=== PATIENT | female | born 1940 | race Caucasian/White ===

== ENCOUNTER 2016-12-03 11:42 | Inpatient (IN) | payer MEDICARE, BC ==
[~2016-12-03] VITALS: Ht 154.9 cm; Wt 68.7 kg
[~2016-12-03 11:42] MED LIST changes: -ALPR.25 PO; -ALPR.5 PO; -AMLO5 PO; -DOCU1CAP39 PO; -GABA100C4 PO; -HYDR-3516 PO; -LISI-519 PO
[2016-12-03] MEDS ORDERED: AMLO5 PO (13:21)
[2016-12-03] MEDS ORDERED: ALPR.5 PO (13:22)
[2016-12-08] MEDS ORDERED: ceFAZolin 2 GM PREMIX 50 ML ONE (10:51)
[2016-12-08 10:59] VITALS: BP 127/77; PULSE 78; RESP 20; TEMP 98.5; O2SAT 99
[2016-12-08] MEDS ORDERED: ceFAZolin 2 GM PREMIX 50 ML IV SCH (12:15)
[2016-12-08] MEDS ORDERED: POVIDONE IODINE 5% (ANTISEPSIS KIT) 4 APPLICATIONS EACH NARE PRN (12:15)
[2016-12-08] MEDS ORDERED: METOPROLOL TARTRATE 25 MG TAB PO PRN (12:15)
[2016-12-08] MEDS ORDERED: LACTATED RINGER'S 1000 ML INJ 1,000 ML IV SCH (12:15)
[2016-12-08] MEDS ORDERED: INSULIN HUMAN REGULAR 1,000 UNITS/10 ML VIAL SQ PRN (12:15)
[2016-12-08] MEDS ORDERED: CHLORHEXIDINE GLUCONATE 2 % 1 PACK (2 CLOTHS) TOPICAL PRN (12:15)
[2016-12-08] MEDS ORDERED: LACTATED RINGER'S 1000 ML IV PRN (12:15)
[2016-12-08] MEDS ORDERED: SODIUM CHLORID 0.9% 500 ML IV PRN (12:15)
[2016-12-08] MEDS ORDERED: PROPOFOL 200 MG/20 ML AMP IV ONE (13:50)
[2016-12-08] MEDS ORDERED: ePHEDrine/NS 25 MG/5 ML SYR IV ONE (13:50)
[2016-12-08] MEDS ORDERED: ONDANSETRON HCL 4 MG/2 ML VIAL IV PUSH ONE (13:51)
[2016-12-08] MEDS ORDERED: PHENYLEPH/NS 1000 MCG/10 ML SYR IV ONE (13:51)
[2016-12-08] MEDS ORDERED: GENTAMICIN SULFATE 80 MG/2 ML VIAL ONE (14:43)
[2016-12-08] MEDS ORDERED: GELFOAM SIZE 100 ONE (14:43)
[2016-12-08] MEDS ORDERED: THROMBIN (TOPICAL) 5,000 UNIT VIAL ONE (14:43)
[2016-12-08] MEDS ORDERED: LIDOCAINE 1%/EPINEPHrine 1:100,000 SOLN 20 ML VIAL ONE (14:43)
[2016-12-08] MEDS ORDERED: MIDAZOLAM HCL 5 MG/5 ML VIAL ONE (15:22)
[2016-12-08] MEDS ORDERED: ACETAMINOPHEN 1000 MG/100 ML VIAL IV ONE ×2 (15:22→19:50)
[2016-12-08] MEDS ORDERED: FAMOTIDINE 20 MG/2 ML VIAL ONE (15:22)
[2016-12-08] MEDS ORDERED: DEXAMETHASONE SOD PHOS 4 MG/ML VIAL ONE (15:23)
[2016-12-08] MEDS ORDERED: HYDROmorphone HCL PF 2 MG/ML VIAL ONE (15:23)
[2016-12-08] MEDS ORDERED: ceFAZolin INJ 1,000 MG VIAL IV ONE (17:20)
[2016-12-08] MEDS ORDERED: fentaNYL CITRATE 250 MCG/5 ML AMP ONE ×2 (17:30→19:50)
[2016-12-08] MEDS ORDERED: DO NOT ADM ANY ANTICOAGULANT DRUGS PRN (21:42)
--- NOTE | 2016-12-08 22:04 | RADRPT ---
EXAM DATE/TIME: 12/08/2016 16:41 [facility] COMPARISON: No previous studies available for comparison. INDICATIONS : C4-C7 Anterior cervical disc fusion with a corpectomy at C5. MEDICAL HISTORY : Hypertension. Gastroesophageal reflux disease. SURGICAL HISTORY : None. ENCOUNTER: Initial ACUITY: 1 day PAIN SCORE: Non-responsive. LOCATION: Cervical spine. CONCLUSION: Fluoroscopic images with anterior fusion C4-C7. Corpectomy device at C5 with drain seen posteriorly. Rommel Perea MD on December 08, 2016 at 22:02 Board Certified Radiologist. This report was verified electronically.
[2016-12-08] MEDS ORDERED: NALOXONE HCL 0.4 MG/ML AMP IV PRN (22:15)
[2016-12-08] MEDS ORDERED: MORPHINE SULFATE 4 MG/ML INJ IV PRN (22:15)
[2016-12-08] MEDS ORDERED: ONDANSETRON HCL 4 MG/2 ML VIAL IV PRN (22:15)
[2016-12-08] MEDS ORDERED: ENALAPRILAT 1.25 MG/ML VIAL IV PUSH PRN (22:15)
[2016-12-08] MEDS ORDERED: LABETALOL HCL 100 MG/20 ML VIAL IV PRN (22:15)
[2016-12-08] MEDS ORDERED: SODIUM CHLORIDE 0.9% FLUSH 5 ML FLUSH IVF PRN (22:15)
[2016-12-08] MEDS ORDERED: oxyCODONE/ACETAMINOPHEN 10 MG/325 MG TAB PO PRN (22:15)
[2016-12-08] MEDS ORDERED: ALPRAZolam 0.5 MG TAB PO PRN (22:15)
[2016-12-08] MEDS ORDERED: HYDROmorphone HCL PF 1 MG/ML VIAL IV PRN (22:15)
[2016-12-08 22:37] LABS: AUTOMATED NEUTROPHIL # 15.8 TH/MM3 (1.8-7.7); BASOPHIL % 0.1 % (0.0-2.0); HEMATOCRIT 32.5 % (35.0-46.0); HEMO FLAGS DIFF FINAL; LYMPH % 2.2 % (9.0-44.0); LYMPHOCYTE # 0.4 TH/MM3 (1.0-4.8); MEAN CELL VOLUME 89.5 FL (80.0-100.0); MEAN CORPUSCULAR HEMOGLOBIN 29.3 PG (27.0-34.0); MEAN CORPUSCULAR HGB CONC 32.7 % (32.0-36.0); MONO % 6.9 % (0.0-8.0); NEUT % 90.8 % (16.0-70.0); PLATELET COUNT 776 TH/MM3 (150-450); RED BLOOD COUNT 3.63 MIL/MM3 (4.00-5.30); RED CELL DISTRIBUTION WIDTH 14.1 % (11.6-17.2); WHITE BLOOD COUNT 17.4 TH/MM3 (4.0-11.0)
--- NOTE | 2016-12-08 22:44 | PD.OP ---
Operative Report Date of Surgery: Dec 08, 2016 Preoperative Diagnosis: (1) Cervical disc disease with myelopathy (2) Cervical spinal stenosis Cervical spondylosis and degenerative disc disease at C4 5, C5 6, C6 7 levels Cervical stenosis Cervical myelopathy Postoperative Diagnosis: (1) Cervical disc disease with myelopathy (2) Cervical spinal stenosis Cervical spondylosis and degenerative disc disease at C4 5, C5 6, C6 7 levels Cervical stenosis Cervical myelopathy Procedure: 1. C5 corpectomy, bilateral C4 5 and C5 6 foraminotomy, for spinal cord and nerve root decompression 2. C5 vertebral body reconstruction with titanium cage and allograft bone 3. C6 7 anterior cervical discectomy, bilateral foraminotomy for spinal cord and nerve root decompression 4. C6 7 anterior cervical interbody fusion, composite allograft bone 5. C4-C7 anterior cervical instrumentation Anesthesia: Gen. Surgeon: Luis Garner Shoe Repair Cobbler(s): Clotilde Holder Operation and Findings: Procedure in detail: The patient was brought into the operating room and positioned in supine position on the 3080 table with the head and neck in neutral position. Fernández catheter was placed. Lines were established by Anesthesia. Gen. endotracheal anesthesia was induced without difficulty, taking care not to significantly flex or extend the patient's neck during intubation and positioning. Leads for intraoperative neuro monitoring were placed and a baseline study obtained. All extremities were appropriately padded. The neck and upper chest were shaved with clippers and sterilely prepped and draped. Appropriate timeout procedure was performed with all personnel present and in agreement 1% Xylocaine with epinephrine was used for local infiltration over the incision site which was made transversely at the [id number] and carried sharply down through the platysma muscle. The exposure was continued medial to the sternocleidomastoid muscle and carotid artery, and lateral to the trachea and esophagus. The prevertebral fascia was elevated away from the anterior longitudinal ligament with a Kitner sponge. The longus coli muscle on each side was elevated with the Kincaid elevator. The self-retaining retractor was placed with the blades beneath the longus coli muscle on each side. The appropriate levels were confirmed with intraoperative C-arm and preoperative imaging studies. The microscope was brought into place and used for the remainder of the procedure including the closure. The 14 mm distraction pins were used as needed for gentle distraction during the procedure. The discectomy and segmental resection of posterior osteophyte was initially performed at the C4 5 and C5 6 levels. At each level the anterior osteophyte was resected with the Leksell rongeur. The disc and annulus was incised with a 15 blade knife and discectomy performed with pituitary biopsy forceps and straight and angled curettes. The TPS drill with the 5 mm barrel bur was used to decorticate the endplates and removed the majority of the osteophyte along the anterior spinal canal as well as the right and left uncovertebral joint. The thin ligament dissector was used to free up the posterior annulus and ligament from the vertebral body margin sequentially at the C4 5 and C5 6 level. The remainder of the resection of the posterior annulus and ligament as well as the posterior osteophyte and bilateral uncovertebral joint was performed with the 2 and 3 mm thin footplate Kerrison rongeurs. Significant posterior osteophyte was encountered and extensively removed. The posterior vertebral bodies were undercut with the Kerrison rongeur and the TPS drill with the 4 mm cristobal bur as needed to fully decompress the anterior spinal canal. The thin ligament dissectors were used to palpate beneath the C5 vertebral body. It was evident that there was still a significant amount of osteophyte and calcified and hypertrophied posterior longitudinal ligament beneath the C5 vertebral body which could not be readily reached through the discectomy spaces. It was elected to proceed with the C5 corpectomy to fully decompress the spinal canal. The Leksell rongeur was used to remove the majority of the C5 vertebral body. The TPS drill was used to thin out the remaining posterior cortical rim of bone. The remaining bone was then lifted away from the dura along with hypertrophied and calcified posterior longitudinal ligament using the thin ligament dissector and further removed with the 3 mm thin footplate Kerrison rongeur. A careful decompression of the ventral canal was accomplished. The titanium cage was then cut to the appropriate dimensions and packed with the patient's C5 autograft bone. The cage was placed at the C5 corpectomy site using intraoperative microscope visualization and the intraoperative C-arm and the distraction pin tension was released. Attention was then turned to the C6 7 level. The anterior osteophyte was again resected with the Leksell rongeur. There was essentially no disc material left at the C6 intervertebral disc space. The TPS drill with the barrel bur was used to decorticate the endplates and remove the majority of the right and left uncovertebral joint as well as the posterior osteophytic disc complex. The thin ligament dissector was then used to release the posterior ligament and annulus away from the vertebral body and uncovertebral joint margin. The remainder of the posterior osteophyte, uncovertebral joint, and hypertrophied ligament was removed with the 2 and 3 mm thin footplate Kerrison rongeur. After the nerve and spinal cord decompression was satisfactory at the C5 6 level , the region was well irrigated with antibiotic irrigation and the 7 x 9 mm lordotic composite allograft bone was placed with a good fit of the construct. The appropriate size Precision anterior cervical plate was then chosen and the bone screws were placed with the 16 mm fixed and variable screws utilized with the variable screws at the caudal most level and the 16 mm fixed screws at the cephalad level of the decompression. The screws were firmly secured and the locking cams engaged. The entire construct was checked with intraoperative C-arm and felt to be satisfactory. The 10 Iranian drain was brought out through a small incision in the left lower neck and secured to the skin with nylon suture and attached to sterile suction. The closure was performed with 3-0 Vicryl running for the platysma and interrupted for the subcutaneous closure, with 4-0 Vicryl running for the subcuticular closure. A dressing of sterile Mastisol, Steri-Strips, and Primapore dressing was placed. The patient was placed into a cervical collar, and taken to recovery room in stable condition. All counts were correct at the end of the case. Estimated blood loss was 400 cc No specimen was sent to pathology. Intraoperative neuro monitoring remained stable during the procedure. Luis Garner MD Dec 08, 2016 22:44
[2016-12-08 22:58] LABS: POTASSIUM 3.9 MEQ/L (3.5-5.1)
[2016-12-08 23:00] VITALS: BP_SYST 124; BP_SYST 126; BP_DIAS 69; BP_DIAS 72; PULSE 84; RESP 13; RESP 18; TEMP 98.1; O2SAT 96; O2SAT 97
[2016-12-08] MEDS: D5-1/2 NS + KCL 20 MEQ INJ 1,000 ML IV SCH (23:00)
[2016-12-09] VITALS (15 sets, daily range): BP systolic 102–157; BP diastolic 59–71; PULSE 76–109; RESP 13–24; TEMP 96.8–98.7; O2SAT 96–100
--- NOTE | 2016-12-09 01:57 | PD.CONS ---
[facility] Service Critical Care Medicine Consult Requested By Dr. Garner Reason for Consult Airway management Primary Care Physician Nick Hinds MD History of Present Illness 76 y/o woman underwent operative decompression and reconstruction of C4 - 7 earlier today. She is now extubated in the PACU and breathing comfortably. There is no stridor and her respiratory effort is calm and unlabored. Sats 100% on 2L O2 by NC. She wiggles her fingers and toes to command and is oriented X 3. Vital signs are all normal. I won't place a formal consult but will follow her tonight for any issues. Past Family Social History Allergies: Coded Allergies: No Known Allergies (Unverified , 12/08/16) Physical Exam Vital Signs Vital Signs Date Time Temp Pulse Resp B/P Pulse Ox O2 Delivery O2 Flow Rate FiO2 12/09/16 01:00 98.1 84 14 136/67 97 12/09/16 00:00 84 12/09/16 00:00 98.1 84 13 124/69 97 12/08/16 23:15 87 15 126/60 97 Nasal Cannula 2 12/08/16 23:00 98.3 88 12 118/57 97 Nasal Cannula 2 116/55 12/08/16 23:00 98.1 84 18 126/72 96 12/08/16 22:45 90 14 97/60 98 Nasal Cannula 2 12/08/16 22:30 93 15 122/57 98 Nasal Cannula 3 12/08/16 22:15 94 16 101/52 95 Nasal Cannula 3 12/08/16 22:00 100 11 102/50 98 Nasal Cannula 3 12/08/16 21:53 98.8 107 14 92/51 98 Nasal Cannula 3 12/08/16 10:59 98.5 78 20 127/77 99 Laboratory Laboratory Tests Test 12/08/16 22:25 White Blood Count 17.4 Red Blood Count 3.63 Hemoglobin 10.6 Hematocrit 32.5 Mean Corpuscular Volume 89.5 Mean Corpuscular Hemoglobin 29.3 Mean Corpuscular Hemoglobin 32.7 Concent Red Cell Distribution Width 14.1 Platelet Count 776 Mean Platelet Volume 7.4 Neutrophils (%) (Auto) 90.8 Lymphocytes (%) (Auto) 2.2 Monocytes (%) (Auto) 6.9 Eosinophils (%) (Auto) 0.0 Basophils (%) (Auto) 0.1 Neutrophils # (Auto) 15.8 Lymphocytes # (Auto) 0.4 Monocytes # (Auto) 1.2 Eosinophils # (Auto) 0.0 Basophils # (Auto) 0.0 CBC Comment DIFF FINAL Differential Comment Sodium Level 141 Potassium Level 3.9 Chloride Level 107 Carbon Dioxide Level 25.0 Anion Gap 9 Blood Urea Nitrogen 11 Creatinine 0.68 Estimat Glomerular Filtration 84 Rate Random Glucose 163 Calcium Level 8.0 Result Diagram: 12/08/16 2225 12/08/16 2225 Boris Zhao MD Dec 09, 2016 01:57
[2016-12-09 04:45] LABS: AUTOMATED NEUTROPHIL # 13.1 TH/MM3 (1.8-7.7); BASOPHIL % 0.1 % (0.0-2.0); HEMATOCRIT 33.8 % (35.0-46.0); HEMO FLAGS DIFF FINAL; LYMPH % 5.2 % (9.0-44.0); LYMPHOCYTE # 0.8 TH/MM3 (1.0-4.8); MEAN CELL VOLUME 88.1 FL (80.0-100.0); MEAN CORPUSCULAR HEMOGLOBIN 28.6 PG (27.0-34.0); MEAN CORPUSCULAR HGB CONC 32.5 % (32.0-36.0); MONO % 6.8 % (0.0-8.0); NEUT % 87.9 % (16.0-70.0); PLATELET COUNT 765 TH/MM3 (150-450); RED BLOOD COUNT 3.84 MIL/MM3 (4.00-5.30); RED CELL DISTRIBUTION WIDTH 14.2 % (11.6-17.2)
[2016-12-09 04:54] LABS: APTT (PATIENT) 25.3 SEC (24.3-30.1); PROTHROMBIN TIME - PATIENT 10.8 SEC (9.8-11.6)
[2016-12-09 05:06] LABS: BICARBONATE 26.3 MEQ/L (21.0-32.0); POTASSIUM 4.5 MEQ/L (3.5-5.1)
[2016-12-09] MEDS: amLODIPine BESYLATE 5 MG TAB PO SCH (08:45)
[2016-12-09] MEDS: PANTOPRAZOLE SOD 40 MG DELAYED RELEASE TAB PO SCH (08:45)
[2016-12-09] MEDS: SODIUM CHLORIDE 0.9% FLUSH 5 ML FLUSH IVF SCH ×2 (08:45→21:00)
[2016-12-09] MEDS: D5-1/2 NS + KCL 20 MEQ INJ 1,000 ML IV SCH ×2 (08:45→18:05)
[2016-12-09] MEDS: DOCUSATE SODIUM 100 MG CAP PO SCH ×2 (08:45→22:16)
--- NOTE | 2016-12-09 10:11 | HHI.NSPN ---
(Jaime Jaimes) Note Status Status: Progress Note (Jaime Jaimes) Interval History Interval History 12/08: Patient presented to OR for: 1. C5 corpectomy, bilateral C4 5 and C5 6 foraminotomy, for spinal cord and nerve root decompression 2. C5 vertebral body reconstruction with titanium cage and allograft bone 3. C6 7 anterior cervical discectomy, bilateral foraminotomy for spinal cord and nerve root decompression 4. C6 7 anterior cervical interbody fusion, composite allograft bone 5. C4-C7 anterior cervical instrumentation 12/09: POD # 1. Patient doing well. Has ambulated hallway with PT. Taking clear liquid diet. (Jaime Jaimes) Labs, Micro, & Vital Signs Results Allergies Coded Allergies Type Severity Reaction Last Updated Verified No Known Allergies 12/08/16 No Recent Impressions Cervical Spine X-Ray 12/08/16 0000 Signed Impressions: Service Date/Time: Thursday, December 08, 2016 16:41 - CONCLUSION: Fluoroscopic images with anterior fusion C4-C7. Corpectomy device at C5 with drain seen posteriorly. Rommel Perea MD //// 06:00 18:00 06:00 18:00 06:00 18:00 Intake Total 4255 ml Output Total 2950 ml Balance 1305 ml Intake Oral 60 ml IV Total 1695 ml Other 2500 ml Output Urine Total 2025 ml Drainage Total 25 ml Estimated Blood Loss 400 ml Other 500 ml # Voids 2 # Bowel Movements 0 Laboratory Tests Test 12/08/16 12/09/16 22:25 04:32 White Blood Count 17.4 TH/MM3 15.0 TH/MM3 Red Blood Count 3.63 MIL/MM3 3.84 MIL/MM3 Hemoglobin 10.6 GM/DL 11.0 GM/DL Hematocrit 32.5 % 33.8 % Mean Corpuscular Volume 89.5 FL 88.1 FL Mean Corpuscular Hemoglobin 29.3 PG 28.6 PG Mean Corpuscular Hemoglobin 32.7 % 32.5 % Concent Red Cell Distribution Width 14.1 % 14.2 % Platelet Count 776 TH/MM3 765 TH/MM3 Mean Platelet Volume 7.4 FL 7.8 FL Neutrophils (%) (Auto) 90.8 % 87.9 % Lymphocytes (%) (Auto) 2.2 % 5.2 % Monocytes (%) (Auto) 6.9 % 6.8 % Eosinophils (%) (Auto) 0.0 % 0.0 % Basophils (%) (Auto) 0.1 % 0.1 % Neutrophils # (Auto) 15.8 TH/MM3 13.1 TH/MM3 Lymphocytes # (Auto) 0.4 TH/MM3 0.8 TH/MM3 Monocytes # (Auto) 1.2 TH/MM3 1.0 TH/MM3 Eosinophils # (Auto) 0.0 TH/MM3 0.0 TH/MM3 Basophils # (Auto) 0.0 TH/MM3 0.0 TH/MM3 CBC Comment DIFF FINAL DIFF FINAL Differential Comment Sodium Level 141 MEQ/L 142 MEQ/L Potassium Level 3.9 MEQ/L 4.5 MEQ/L Chloride Level 107 MEQ/L 109 MEQ/L Carbon Dioxide Level 25.0 MEQ/L 26.3 MEQ/L Anion Gap 9 MEQ/L 7 MEQ/L Blood Urea Nitrogen 11 MG/DL 8 MG/DL Creatinine 0.68 MG/DL 0.66 MG/DL Estimat Glomerular Filtration 84 ML/MIN 87 ML/MIN Rate Random Glucose 163 MG/DL 185 MG/DL Calcium Level 8.0 MG/DL 8.6 MG/DL Prothrombin Time 10.8 SEC Prothromb Time International 1.0 RATIO Ratio Activated Partial 25.3 SEC Thromboplast Time Constitutional Vital Signs Date Time Temp Pulse Resp B/P Pulse Ox O2 Delivery O2 Flow Rate FiO2 12/09/16 08:23 98 Nasal Cannula 2.00 12/09/16 08:00 98.0 77 14 111/59 98 12/09/16 08:00 83 12/09/16 07:00 98 Nasal Cannula 2.00 12/09/16 06:00 87 12/09/16 06:00 87 15 157/68 98 12/09/16 05:00 77 14 125/60 98 12/09/16 04:00 76 12/09/16 04:00 97.8 76 15 135/63 98 12/09/16 03:00 90 13 150/66 98 4/26/17 02:00 86 14 136/71 96 12/09/16 02:00 86 12/09/16 01:00 84 14 136/67 97 12/09/16 00:00 84 12/09/16 00:00 98.1 84 13 124/69 97 12/08/16 23:15 87 15 126/60 97 Nasal Cannula 2 12/08/16 23:00 98.3 88 12 118/57 97 Nasal Cannula 2 116/55 12/08/16 23:00 98.1 84 18 126/72 96 12/08/16 22:45 90 14 97/60 98 Nasal Cannula 2 12/08/16 22:30 93 15 122/57 98 Nasal Cannula 3 12/08/16 22:15 94 16 101/52 95 Nasal Cannula 3 12/08/16 22:00 100 11 102/50 98 Nasal Cannula 3 12/08/16 21:53 98.8 107 14 92/51 98 Nasal Cannula 3 12/08/16 10:59 98.5 78 20 127/77 99 12/09/16 07:00 Intake Total 4255 ml Output Total 2950 ml Balance 1305 ml (Jaime Jaimes) Review of Systems/Exam ROS Neuro: Denies any headache, dizziness, numbness, tingling or weakness. Neck: Denies any neck pain. Resp: Denies any shortness of breath or productive cough. Cardiac: Denies any chest pain, palpitations or irregular heart beat. GI: Denies any abdominal pain, nausea, vomiting or bowel incontinence. Extremities: Denies any arm or leg pain or weakness. Exam HEENT: Normocephalic, atraumatic. Neck: In [place] J cervical collar. Midline cervical spine NTTP, dressing to anterior surgical incision intact w/o any evident shadowing, LUKE drain to bulb suction w/sanguinous drainage, no JVD, trachea midline. Resp: CTAB w/o W/R/R, equal excursion, non-laboured, on RA. CV: S1S2 w/RRR w/o M/G/R, monitor is sinus rhythm w/o any ectopy noted. GI: Abdomen soft, nontender, positive bowel sounds. : Fernández catheter to BSD w/clear yellow urine. Extremities: LESTER, no deformity, discolouration or clubbing noted. Neuro: AAOx3. Speech clear & appropriate. Follows commands. Sensation grossly intact to light touch to all extremities. Symmetrical motor function to all major muscle flexion & extension muscle groups. (Jaime Jaimes) Medications Current Medications Current Medications Medications (Trade) Dose Ordered Sig/Vitaly Route Start Time Stop Time Status Last Admin (Xanax) 0.5 mg Q6H PRN PO 12/08/16 22:15 (Norvasc) 5 mg DAILY PO 12/09/16 09:00 12/09/16 08:45 (NS Flush) 2 ml UNSCH PRN IVF 12/08/16 22:15 IV Flush 2 ml 2 ml BID IVF 12/09/16 09:00 12/09/16 08:45 (D5-1/2 NS + KCl 20 Meq Inj) 1,000 ml @ 100 mls/hr Q10H IV 12/08/16 22:03 12/09/16 08:45 ([place] 5-325 Mg) 1 tab Q4H PRN PO 12/08/16 22:15 (Percocet 10-325 Mg) 1 tab Q6H PRN PO 12/08/16 22:15 (Dilaudid Pf Inj) 0.5 mg Q3H PRN IV 12/08/16 22:15 12/09/16 06:00 (Morphine Inj) 4 mg Q3H PRN IV 12/08/16 22:15 (Narcan Inj) 0.4 mg UNSCH PRN IV 12/08/16 22:15 (Colace) 100 mg BID PO 12/09/16 09:00 12/09/16 08:45 (Protonix) 40 mg DAILY PO 12/09/16 09:00 12/09/16 08:45 (Zofran Inj) 4 mg Q6H PRN IV 12/08/16 22:15 (Trandate Inj) 10 mg Q1H PRN IV 12/08/16 22:15 (Vasotec Inj) 1.25 mg Q8H PRN IV PUSH 12/08/16 22:15 Miscellaneous Information ALL NURSING DEPARTME... UNSCH PRN .XX 12/08/16 21:42 12/09/16 21:41 (Jaime Jaimes) Medical Decision Making MDM Remarks (1) Cervical disc disease with myelopathy (2) Cervical spinal stenosis Cervical spondylosis and degenerative disc disease at C4 5, C5 6, C6 7 levels Cervical stenosis Cervical myelopathy Procedure 12/08: 1. C5 corpectomy, bilateral C4 5 and C5 6 foraminotomy, for spinal cord and nerve root decompression 2. C5 vertebral body reconstruction with titanium cage and allograft bone 3. C6 7 anterior cervical discectomy, bilateral foraminotomy for spinal cord and nerve root decompression 4. C6 7 anterior cervical interbody fusion, composite allograft bone 5. C4-C7 anterior cervical instrumentation POD # 1, stable neurological exam Patient ambulating using wheeled walker w/assistance (Jaime Jaimes) Plan Plan Remarks Continue PT & OT Continue ST as indicated Advance diet as tolerated Transfer patient to regular med/surg floor Case Management for discharge planning Anticipate that patient will need brief stay at acute rehab ([place]) Plan for cervical spine XR early next week (Jaime Jaimes) Attending Statement I have personally seen and examined the patient on the date of this note. Pertinent documentation and study results have been reviewed by the undersigned. I have personally developed the treatment plan and performed medical decision making. Agree with findings, exam, and treatment plan as noted above. Stable neurologic exam postop Mild hoarseness of voice Continue therapy evaluations Stable for floor (Luis Garner MD) Jaime Jaimes Dec 09, 2016 10:11 Luis Garner MD Dec 09, 2016 18:53
[2016-12-09] MEDS: ACETAMINOPHEN/HYDROcodone 325 MG/5 MG TAB PO PRN (10:28)
[2016-12-10 00:42] VITALS: BP 157/69; PULSE 86; RESP 20; TEMP 97.8; O2SAT 98
[2016-12-10] MEDS: D5-1/2 NS + KCL 20 MEQ INJ 1,000 ML IV SCH ×2 (04:03→08:03)
[2016-12-10 05:08] VITALS: BP 148/89; PULSE 76; RESP 22; TEMP 97.8; O2SAT 99
[2016-12-10 07:40] VITALS: BP 128/71; PULSE 105; RESP 20; TEMP 98.5; O2SAT 96
[2016-12-10] MEDS: amLODIPine BESYLATE 5 MG TAB PO SCH (08:02)
[2016-12-10] MEDS: PANTOPRAZOLE SOD 40 MG DELAYED RELEASE TAB PO SCH (08:02)
[2016-12-10] MEDS: DOCUSATE SODIUM 100 MG CAP PO SCH (08:03)
[2016-12-10] MEDS: SODIUM CHLORIDE 0.9% FLUSH 5 ML FLUSH IVF SCH (08:03)
[2016-12-10 08:43] VITALS: O2SAT 96
[2016-12-10 11:35] VITALS: BP 129/71; PULSE 89; RESP 20; TEMP 99.4; O2SAT 96
--- NOTE | 2016-12-10 14:17 | HHI.NSPN ---
Note Status Status: Progress Note Interval History Interval History 12/08: Patient presented to OR for: 1. C5 corpectomy, bilateral C4 5 and C5 6 foraminotomy, for spinal cord and nerve root decompression 2. C5 vertebral body reconstruction with titanium cage and allograft bone 3. C6 7 anterior cervical discectomy, bilateral foraminotomy for spinal cord and nerve root decompression 4. C6 7 anterior cervical interbody fusion, composite allograft bone 5. C4-C7 anterior cervical instrumentation 12/09: POD # 1. Patient doing well. Has ambulated hallway with PT. Taking clear liquid diet. 12/10: POD # 2. Patient states she is doing good today although she does have a slight headache. She has no other complaints. Labs, Micro, & Vital Signs Constitutional Vital Signs Date Time Temp Pulse Resp B/P Pulse Ox O2 Delivery O2 Flow Rate FiO2 12/10/16 11:35 99.4 89 20 129/71 96 12/10/16 08:43 96 Nasal Cannula 21 12/10/16 08:36 Room Air 12/10/16 07:40 98.5 105 20 128/71 96 12/10/16 05:08 97.8 76 22 148/89 99 12/10/16 00:42 97.8 86 20 157/69 98 12/09/16 21:00 Room Air Nasal Cannula 12/09/16 20:30 Room Air 12/09/16 20:26 96.8 85 19 156/66 97 12/09/16 18:00 100 12/09/16 16:00 98.0 109 24 114/66 100 12/09/16 16:00 107 12/10/16 07:00 Intake Total 1237 ml Output Total 1960 ml Balance -723 ml Review of Systems/Exam ROS Neuro: Slight headache, denies any dizziness, numbness, tingling or weakness. Neck: Denies any neck pain. Resp: Denies any shortness of breath or productive cough. Cardiac: Denies any chest pain, palpitations or irregular heart beat. GI: Denies any abdominal pain, nausea, vomiting or bowel incontinence. Extremities: Denies any arm or leg pain or weakness. Exam HEENT: Normocephalic, atraumatic. Neck: In [place] J cervical collar. Midline cervical spine NTTP, dressing to anterior surgical incision intact w/o any evident shadowing, LUKE drain to bulb suction w/serous drainage, no JVD, trachea midline. Resp: CTAB w/o W/R/R, equal excursion, non-laboured, on RA. CV: S1S2 w/RRR w/o M/G/R. GI: Abdomen soft, nontender, positive bowel sounds. : Fernández catheter to BSD w/clear yellow urine. Extremities: LESTER, no deformity, discolouration or clubbing noted. Neuro: AAOx3. Speech clear & appropriate. Follows commands. Sensation grossly intact to light touch to all extremities. Symmetrical motor function to all major muscle flexion & extension muscle groups. Medications Current Medications Current Medications Medications (Trade) Dose Ordered Sig/Vitaly Route Start Time Stop Time Status Last Admin (Xanax) 0.5 mg Q6H PRN PO 12/08/16 22:15 12/09/16 23:36 (Norvasc) 5 mg DAILY PO 12/09/16 09:00 12/10/16 08:02 (NS Flush) 2 ml UNSCH PRN IVF 12/08/16 22:15 IV Flush 2 ml 2 ml BID IVF 12/09/16 09:00 12/09/16 21:00 (D5-1/2 NS + KCl 20 Meq Inj) 1,000 ml @ 100 mls/hr Q10H IV 12/08/16 22:03 12/09/16 18:05 ([place] 5-325 Mg) 1 tab Q4H PRN PO 12/08/16 22:15 12/09/16 10:28 (Percocet 10-325 Mg) 1 tab Q6H PRN PO 12/08/16 22:15 (Dilaudid Pf Inj) 0.5 mg Q3H PRN IV 12/08/16 22:15 12/09/16 06:00 (Morphine Inj) 4 mg Q3H PRN IV 12/08/16 22:15 (Narcan Inj) 0.4 mg UNSCH PRN IV 12/08/16 22:15 (Colace) 100 mg BID PO 12/09/16 09:00 12/10/16 08:03 (Protonix) 40 mg DAILY PO 12/09/16 09:00 12/10/16 08:02 (Zofran Inj) 4 mg Q6H PRN IV 12/08/16 22:15 (Trandate Inj) 10 mg Q1H PRN IV 12/08/16 22:15 (Vasotec Inj) 1.25 mg Q8H PRN IV PUSH 12/08/16 22:15 Medical Decision Making MDM Remarks (1) Cervical disc disease with myelopathy (2) Cervical spinal stenosis Cervical spondylosis and degenerative disc disease at C4 5, C5 6, C6 7 levels Cervical stenosis Cervical myelopathy Procedure 12/08: 1. C5 corpectomy, bilateral C4 5 and C5 6 foraminotomy, for spinal cord and nerve root decompression 2. C5 vertebral body reconstruction with titanium cage and allograft bone 3. C6 7 anterior cervical discectomy, bilateral foraminotomy for spinal cord and nerve root decompression 4. C6 7 anterior cervical interbody fusion, composite allograft bone 5. C4-C7 anterior cervical instrumentation POD # 2, stable neurological exam Patient ambulating using wheeled walker w/assistance LUKE drain w/60 mL output recorded past 24 hours Plan Plan Remarks Will d/c LUKE drain Patient accepted at [facility], will discharge from [place] for transfer there. Continue current plan of care Plan for cervical spine XR Wednesday Jaime Jaimes Dec 10, 2016 14:17
--- NOTE | 2016-12-10 14:33 | HHI.DCPOC ---
Discharge Care Plan Diagnosis: (1) Cervical spinal stenosis (2) Cervical disc disease with myelopathy Your Health Problems Are: Difficulty with ADL Incision/Drains Additional Problems Difficulty ambulating Limited range of motion to the neck Goals to Promote Your Health * To prevent worsening of your condition and complications * To maintain your health at the optimal level Directions to Meet Your Goals Take your medications as prescribed Follow your dietary instruction Follow activity as directed Avoid any products containing aspirin or NSAIDs (ibuprofen, Advil, Motrin, Aleve, etc.) Wear the cervical collar at all times. May shower with assistance on . Keep a moisture proof dressing over the site for the when showering for a week. Let the steri-strips fall off on there own. Keep your appointments as scheduled Take your immunizations and boosters as scheduled If your symptoms worsen call your PCP, if no PCP go to Urgent Care Center or Emergency Room Smoking is Dangerous to Your Health. Avoid second hand smoke Call the 24-hour hour crisis hotline for domestic abuse at Jaime Jaimes Dec 10, 2016 14:33
--- NOTE | 2016-12-10 14:40 | HHI.DS ---
Discharge Summary Admission Date Dec 08, 2016 at 10:12 Discharge Date: Dec 10, 2016 Admitting Diagnosis Cervical disc disease with myelopathy Cervical spinal stenosis (1) Cervical spinal stenosis Diagnosis: Principal ICD Code: M48.02 (2) Cervical disc disease with myelopathy Diagnosis: Secondary ICD Code: M50.00 Procedures 1. C5 corpectomy, bilateral C4 5 and C5 6 foraminotomy, for spinal cord and nerve root decompression 2. C5 vertebral body reconstruction with titanium cage and allograft bone 3. C6 7 anterior cervical discectomy, bilateral foraminotomy for spinal cord and nerve root decompression 4. C6 7 anterior cervical interbody fusion, composite allograft bone 5. C4-C7 anterior cervical instrumentation CBC/BMP: 12/09/16 0432 12/09/16 0432 Significant Findings Laboratory Tests Test 12/08/16 12/09/16 22:25 04:32 White Blood Count 17.4 TH/MM3 15.0 TH/MM3 (4.0-11.0) (4.0-11.0) Red Blood Count 3.63 MIL/MM3 3.84 MIL/MM3 (4.00-5.30) (4.00-5.30) Hemoglobin 10.6 GM/DL 11.0 GM/DL (11.6-15.3) (11.6-15.3) Hematocrit 32.5 % 33.8 % (35.0-46.0) (35.0-46.0) Platelet Count 776 TH/MM3 765 TH/MM3 (150-450) (150-450) Neutrophils (%) (Auto) 90.8 % 87.9 % (16.0-70.0) (16.0-70.0) Lymphocytes (%) (Auto) 2.2 % 5.2 % (9.0-44.0) (9.0-44.0) Neutrophils # (Auto) 15.8 TH/MM3 13.1 TH/MM3 (1.8-7.7) (1.8-7.7) Lymphocytes # (Auto) 0.4 TH/MM3 0.8 TH/MM3 (1.0-4.8) (1.0-4.8) Monocytes # (Auto) 1.2 TH/MM3 1.0 TH/MM3 (0-0.9) (0-0.9) Estimat Glomerular Filtration 84 ML/MIN (>89) 87 ML/MIN (>89) Rate Random Glucose 163 MG/DL 185 MG/DL (74-106) (74-106) Calcium Level 8.0 MG/DL (8.5-10.1) Chloride Level 109 MEQ/L (98-107) Hospital Course Patient presented to the hospital on for the above listed surgery. Post-operatively she was admitted to the [facility] and did well. She was tolerating a liquid diet and ambulating the hallway with a wheeled walker and assistance on . Therefore she was transferred to a regular med/surg floor where she continued to do well. The LUKE drain was discontinued on . She was accepted at [facility] and discharged from [place] for transfer to that facility for further rehab/therapy later that day. Pt Condition on Discharge: Good Discharge Disposition: Rehab Inpatient Discharge Instructions DIET: Follow Instructions for: Soft Diet Speech Therapy-Diet Recommenda: Mechanical Soft ACTIVITIES You can perform: Weight Bearing As Katie Activities to Avoid: Lifting/Bending ADDITIONAL Activity Instructio: Wear the cervical collar at all times. May shower with assistance on . Keep a moisture proof dressing over the site for the when showering for a week. Let the steri-strips fall off on there own. Additional Information Avoid any products containing aspirin or NSAIDs (ibuprofen, Motrin, Aleve, Advil , etc.) Cervical spine x-ray on Jaime Jaimes Dec 10, 2016 14:40
[2016-12-10] MEDS: ACETAMINOPHEN/HYDROcodone 325 MG/5 MG TAB PO PRN (15:08)
[2016-12-21] MEDS ORDERED: GABA100C4 PO (13:50)
[2016-12-21] MEDS ORDERED: HYDR-3516 PO (13:50)
[2016-12-21] MEDS ORDERED: DOCU1CAP39 PO (13:50)
[2016-12-21] MEDS ORDERED: LIPI40TA PO (13:50)
[2016-12-21] MEDS ORDERED: AMLO5 PO (13:50)
[2016-12-21] MEDS ORDERED: ALPR.5 PO (13:50)
[2017-01-20] MEDS ORDERED: ALPR.25 PO (11:52)
== END 2016-12-10 16:23 | DRG 472 ==
LOC: HSDI 12-08 10:12 → EDUNIT# 12-08 12:00 → N03A 12-08 23:32 → N05B 12-09 18:42
PROVIDERS: ADMIT Neurological Surgery; ATTEND Neurological Surgery
PROC: 0RB30ZZ Excision of Cervical Vertebral Disc, Open Approach (ICD-10-PCS; 2016-12-08)
PROC: 0RG20K0 Fusion of 2 or more Cervical Vertebral Joints with Nonautologous Tissue Substitute, Anterior Approach, Anterior Column, Open Approach (ICD-10-PCS; 2016-12-08)
PROC: 0RG20A0 Fusion of 2 or more Cervical Vertebral Joints with Interbody Fusion Device, Anterior Approach, Anterior Column, Open Approach (ICD-10-PCS; principal; 2016-12-08 15:26)
DX: M48.02 Spinal stenosis, cervical region (principal); M47.12 Other spondylosis with myelopathy, cervical region; M50.021 Cervical disc disorder at C4-C5 level with myelopathy; M50.022 Cervical disc disorder at C5-C6 level with myelopathy; M50.023 Cervical disc disorder at C6-C7 level with myelopathy
CPT/HCPCS: 72040; 76000; 80048; 85025; 85610; 85730; 87641; 94150; C1713; J0131; J0690; J1100; J1170; J1580; J2250; J2370; J2405; J3010; J3480; J7120

== ENCOUNTER → 2016-12-03 | Outpatient (CLI) | payer MEDICARE, BC ==
[~2016-12-03] MED LIST: ALPR.25 PO; ALPR.5 PO; AMLO5 PO; DOCU1CAP39 PO; GABA100C4 PO; HYDR-3516 PO; LIPI40TA PO; LISI-519 PO
[2016-12-03 12:56] LABS: MEAN CELL VOLUME 89.3 FL (80.0-100.0); MEAN CORPUSCULAR HEMOGLOBIN 29.6 PG (27.0-34.0); MEAN CORPUSCULAR HGB CONC 33.1 % (32.0-36.0); PLATELET COUNT 1017 TH/MM3 (150-450); RED CELL DISTRIBUTION WIDTH 14.5 % (11.6-17.2); REVIEW FLAG FINAL; WHITE BLOOD COUNT 12.7 TH/MM3 (4.0-11.0)
[2016-12-03 13:06] LABS: PROTHROMBIN TIME - PATIENT 10.9 SEC (9.8-11.6)
[2016-12-03 13:22] LABS: BICARBONATE 29.5 MEQ/L (21.0-32.0); POTASSIUM 4.3 MEQ/L (3.5-5.1)
--- NOTE | 2016-12-03 14:39 | RADRPT ---
EXAM DATE/TIME: 12/03/2016 13:16 [facility] COMPARISON: No previous studies available for comparison. INDICATIONS : Evaluate for pneumonia, pneumothorax or communicable disease. Pre op neck surgery. MEDICAL HISTORY : Hypertension. SURGICAL HISTORY : Fusion, thoracic. ENCOUNTER: Initial ACUITY: 1 day PAIN SCORE: 0/10 LOCATION: Bilateral chest FINDINGS: Hardware is noted within the mid thoracic spine. Degenerative changes and mild scoliosis of the thor acolumbar spine are noted. The heart and mediastinal structures are normal. The pulmonary vascular pattern is also normal. The lungs are clear. CONCLUSION: 1. No acute cardiopulmonary disease. 2. Degenerative changes and scoliosis of the thoracolumbar spine. Klaus Ritter MD on December 03, 2016 at 13:53 Board Certified Radiologist. This report was verified electronically.
== END ==
LOC: CPRE 11:35
PROVIDERS: ATTEND Neurological Surgery
DX: Z01.812 Encounter for preprocedural laboratory examination (principal); Z01.811 Encounter for preprocedural respiratory examination; M50.00 Cervical disc disorder with myelopathy, unspecified cervical region; Z79.01 Long term (current) use of anticoagulants
CPT/HCPCS: 36415; 71020; 80048; 85027; 85610